=== PATIENT | male | born 1955 | race Caucasian/White ===

== ENCOUNTER 2019-08-09 20:13 | Inpatient (IN) | payer OTHER ==
[~2019-08-09] VITALS: Ht 175.3 cm; Wt 117.5 kg
--- NOTE | ~2019-08-09 | CON ---
[address] [address] CONSULTATION Name: RILEY MEJIAS Room: [facility]#: [id number] Admission: 08/09/19 Attend Phys: Discharge: Date of : 57 Report #: [id number] THIS REPORT FOR: //name// cc: Willow Escobar Mohammad K. DO ~ THIS REPORT FOR: //name// CC: Willow Hogan DATE OF SERVICE: 08/09/2019 CARDIOLOGY CONSULTATION The patient going to the ICU on 08/09/2019. HISTORY OF PRESENT ILLNESS: The patient is a 64-year-old male, who developed chest pain this afternoon, which waxed and waned until this evening when it persisted. He then sought assistance in the [facility] Emergency Room. EKG revealed inferior ST segment elevation compatible with acute inferior wall ST segment elevation myocardial infarction. Risk factors include tobacco use estimated at 1 pack per day for many years, hypertension, and a positive family history of premature coronary disease. He describes borderline diabetes. He has been on a number of medicines, but does not recall them at present in the context of his pain. PHYSICAL EXAMINATION: GENERAL: Demonstrates an acutely distressed, overweight, middle-aged male. VITAL SIGNS: Blood pressure is 140/80, pulse rate is 74, respirations are 18 per minute. NECK: Jugular venous pressure is normal. CHEST: Clear. CARDIAC: Reveals normal first and second heart sounds with a probable S4 gallop. ABDOMEN: Obese. EXTREMITIES: Without edema with intact femoral, pedal and radial pulses. LABORATORY DATA: Electrocardiogram demonstrates sinus rhythm with inferior ST segment elevation suggesting acute inferior wall ST segment elevation myocardial infarction. IMPRESSION: 1. Acute inferior wall ST-elevation myocardial infarction. [facility] [address] [place] [address] CONSULTATION Name: RILEY MEJIAS Room: [facility]#: [id number] Admission: 08/09/19 Attend Phys: Discharge: Date of : 57 Report #: [id number] 2. Antecedent hypertension. 3. Tobacco habituation. 4. Anxiety. 5. Obesity. RECOMMENDATIONS: Given the aforementioned clinical scenario, I would recommend emergent cardiac catheterization with strong consideration of acute percutaneous coronary intervention contingent on the findings of that study. Thirty-five minutes of critical care time from 2200 to 2235 on 08/09/2019. By: 35 [id number] Bonds MD, FACC /nt
[2019-08-09 20:21] VITALS: BP 144/113
[2019-08-09 20:43] LABS: ABSOLUTE BASOPHILS 0.1 thou/uL (0.0-0.2); ABSOLUTE EOSINOPHILS 0.3 thou/uL (0.0-0.7); ABSOLUTE MONOCYTES 0.9 thou/uL (0.0-1.2); ABSOLUTE NEUTROPHILS 5.5 thou/uL (1.6-8.1); BASOPHILS 0.7 %; EOSINOPHILS 2.9 %; HEMATOCRIT 53.6 % (42.0-52.0); HEMOGLOBIN 18.6 gm/dL (14.0-18.0); LYMPHOCYTES 23.3 %; MCH 33.1 pg (26.0-34.0); MCHC 34.7 g/dL (28.0-37.0); MCV 95.6 fL (80.0-100.0); MPV 8.2 fl. (7.2-11.1); NUCLEATED RBCS 0 /100WBC; PLATELET COUNT* 221 thou/uL (150-400); POLYS 63.1 %; RBC 5.61 mil/uL (4.50-6.00); RDW-CV 13.7 % (10.5-14.5); WBC 8.7 thou/uL (4.0-11.0)
[2019-08-09] MEDS ORDERED: MELOXICAM15 MG PO (20:45)
[2019-08-09] MEDS ORDERED: GLUCOPHAGE500 MG PO (20:45)
[2019-08-09] MEDS ORDERED: LIPITOR40 MG PO (20:46)
[2019-08-09] MEDS ORDERED: AMLODIPINE PO (20:46)
[2019-08-09 20:51] LABS: CALCIUM 8.6 mg/dL (8.5-10.1); POTASSIUM 3.7 mmol/L (3.5-5.1)
[2019-08-09 20:52] LABS: PROTIME 10.7 Seconds (9.20-11.50)
[2019-08-09 20:55] VITALS: BP 144/113
[2019-08-09 21:02] LABS: ALBUMIN 4.3 g/dL (3.4-5.0); TOTAL BILIRUBIN 0.9 mg/dL (<0.1-1.0); TOTAL PROTEIN 7.5 g/dL (6.4-8.2)
[2019-08-10] VITALS (12 sets, daily range): BP systolic 119–166; BP diastolic 65–90
[2019-08-10 05:40] LABS: HEMATOCRIT 53.1 % (42.0-52.0); HEMOGLOBIN 18.3 gm/dL (14.0-18.0); MCH 33.4 pg (26.0-34.0); MCHC 34.6 g/dL (28.0-37.0); MCV 96.6 fL (80.0-100.0); MPV 8.2 fl. (7.2-11.1); RBC 5.49 mil/uL (4.50-6.00); RDW-CV 13.6 % (10.5-14.5); WBC 9.3 thou/uL (4.0-11.0)
[2019-08-10 05:59] LABS: CALCIUM 8.7 mg/dL (8.5-10.1); TOTAL BILIRUBIN 0.8 mg/dL (<0.1-1.0); TOTAL PROTEIN 7.4 g/dL (6.4-8.2)
[2019-08-10 06:01] LABS: CHOLESTEROL 92 mg/dL (<200); HDL CHOLESTEROL 30 mg/dL (>40); LDL CHOLESTEROL 50 mg/dL (<100); TC:HDL 3.1 Ratio (Not establshd); TRIGLYCERIDE 60 mg/dL (<150); VLDL 12 mg/dL (<40)
[2019-08-10 06:14] LABS: POTASSIUM 4.8 mmol/L (3.5-5.1); SERUM ASSESSMENT Clear
--- NOTE | 2019-08-10 09:33 | EKG ---
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
--- NOTE | 2019-08-10 09:33 | EKG ---
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
--- NOTE | 2019-08-10 10:51 | EKG ---
[place] [address] ELECTROCARDIOGRAM REPORT Name: RILEY MEJIAS Room: [address] ADM IN M.R.#: [id number] Admission: 08/09/19 Attend Phys: Trevin Polanco Discharge: Date of : 57 Date of Service: 08/09/192016 Report #: [id number] THIS REPORT FOR: //name// [facility] ED Test Date: 2019-08-09 Test Time: 20:17:31 Pat Name: RILEY MEJIAS Department: Room: [facility] Gender: M Resident Services Coordinator: ALEX : 1955 Requested By: Lupe Hogan Order Number: [id number] MD: Sascha Nowak Measurements Intervals [place] Rate: 82 P: 65 PA: 151 QRS: 62 QRSD: 91 T: 93 QT: 351 QTc: 410 Interpretive Statements Sinus rhythm Inferior infarct, acute (RCA) Anteroseptal infarct, age indeterminate Probable RV involvement, suggest recording right precordial leads No previous ECG available for comparison Electronically Signed On 08-10-2019 10:50:38 CDT by Sascha Nowak [email or web address] <ELECTRONICALLY SIGNED> By: Sascha Nowak MD, FAC 08/10/19 1050 16 16 Sascha Nowak MD, [facility] /EPI
--- NOTE | 2019-08-10 14:48 | CARD ---
[address] [address] CARDIAC CATH REPORT Name: RILEY MEJIAS BOBBI Room: [address] IN M.R.#: [id number] Admission: 08/09/19 Attend Phys: Darryl Bonds MD, Discharge: Date of : 57 Report #: [id number] THIS REPORT FOR: //name// cc: Willow Escobar Mohammad K. DO ~ APPROVED REPORT Study performed: 08/09/2019 20:35:04 Patient Details Patient Status: ED Room #: The patient is a 64 year-old male Event Personnel Darryl Bonds Synthetic Filament Spinner, Yumiko Hanley RN, Mabel Mayer RTR Scrub, Saima Joyce RTR Monitor Procedures Performed Art Access - R femoral artery Left Heart Cath w/or w/o Coronaries SHYAM Revasc AMI Total/Sub Single RCA Hemostasis w/ Angioseal Indication STEMI Risk Factors Obesity, Hypercholesterolemia, Hypertension, Tobacco History () Admission/Lab Medications/Medications given during procedure Angiomax Bolus and infusion; transient dopamine infusion will: IV Solu-Medrol and Benadryl Procedure Narrative The patient was brought emergently to the Cardiac Catheterization Laboratory and was prepped and draped in a sterile manner. The right femoral was infiltrated with 2% Lidocaine subcutaneous anesthesia. A [place] 6 FR sheath was inserted into the right femoral artery. Coronary angiography was performed using coronary diagnostic catheters. The right coronary system was accessed and visualized with a Diagnostic 6 Fr JR 4 catheter. The left coronary system was accessed and visualized with a Diagnostic 6 Fr JL 4 catheter. The left ventricle was accessed and visualized with a Diagnostic 6 Fr Pigtail catheter. Left ventricular/Aortic Valve gradient assessed via catheter pullback. [place] [address] CARDIAC CATH REPORT Name: MAGALIERILEY LEE Room: [address]#: [id number] Admission: 08/09/19 Attend Phys: Darryl Bonds MD, Discharge: Date of : 57 Report #: [id number]. Pre-demployment femoral angiogram was performed . Closure device was deployed with a Fr Angioseal STS 6Fr. The patient tolerated the procedure well and there were no complications associated with the procedure. There was no hematoma. Intraoperative Conscious Sedation Sedation start time: 21:07 Case end Time: 22:15 Fentanyl 25 mcg Versed 1 mg Fluoro Time: 14.7 minutes Dose: DAP [id number] cGycm2 2485 mGy Contrast Type and Amount: Visipaque 235 ml Diagnostic Cath Left Main 0 percent narrowing LAD Tortuosity with 30% mid vessel narrowing Circumflex NonDominant vessel with 40% mid vessel narrowing Right Coronary Dominant vessel with 100% mid vessel occlusion and local thrombus at the site Left Ventriculography Left Ventriculography was not performed. Hemodynamics The aortic pressure is 137/66 mmHg with a mean of 97 mmHg. The left ventricular pressure is 142/-13 mmHg with a mean of mmHg. The left ventricular end diastolic pressure is 20 mmHg. There was no gradient across the aortic valve upon pullback. PCI Technique Lesion Anticoagulation was achieved with Angiomax Drip. Patient was preloaded with Angiomax IV 17 ml. Percutaneous coronary intervention was performed on the mid right coronary artery. The lesion stenosis prior to intervention was 100% with VIELKA 0 flow. A 6F JR 4.0 Guide Catheter was used to engage the right ostium. A IG: ProwaterFlex 180CM Interventional Guidewire was used to cross the lesion. BALLOON DILATION A Balloon catheter Trek RX 2.5 X 12 was inserted and inflated up to 10.00atm for 20seconds. Additional Inflation: 10.00atm for 54seconds. Additional Inflation: 10.00atm for 63seconds. STENT DEPLOYMENT A drug-eluting stent Warren RX Stent 2.5X15mm was inserted and inflated up to 10.00atm for 11seconds. Additional Inflation: 16.00atm [place] [address] CARDIAC CATH REPORT Name: RILEY MEJIAS Room: [address] IN .R.#: [id number] Admission: 08/09/19 Attend Phys: Darryl Bonds MD, Discharge: Date of : 57 Report #: [id number] for 10seconds. Additional Inflation: 18.00atm for 14seconds. POST STENT DEPLOYMENT BALLOON DILATION A Balloon catheter NC Euphora 3.0x12 was inserted and inflated up to 16.00atm for 14seconds. Additional Inflation: 17.00atm for 14seconds. NC Euphora 3.0 x 12 was inserted and inflated up to 14 elham for 15 seconds and 17 elham for 15 seconds. Final angiography reveals 10 % stenosis with VIELKA 3 flow. Conclusion #[address] segment elevation myocardial infarction #2 coronary artery disease characterized by the following: A 100% mid right coronary occlusion with prominent intraluminal thrombus B 30% narrowing of the midportion of a tortuous LAD C 40% narrowing in the midportion of the nondominant circumflex #3 moderate elevation of left ventricular end-diastolic pressure at rest #4 successful PCI with deployment of a drug-eluting stent at the site of 100% mid right coronary occlusion with 10% residual narrowing and VIELKA-3 flow to the distal vessel with no residual thrombus Recommendations Cardiac Rehabilitation Referral Cardiac Risk Reduction Program Aggressive Medical Therapy Medications Administered Aspirin (any) Prasugrel Diagnostic Cath Approved by: Darryl Bonds MD Date/Time: 08/10/2019 14:44:16 <ELECTRONICALLY SIGNED> By: Darryl Bonds MD, FACC 08/10/19 1447 1447 1447Darryl Bonds MD, FACC /INF
[2019-08-11] VITALS: BP 134/73
[2019-08-11 04:25] VITALS: BP 98/51
[2019-08-11 08:00] VITALS: BP 127/77
--- NOTE | 2019-08-11 10:47 | D ---
[address] [address] DISCHARGE SUMMARY Name: RILEY MEJIAS BOBBI Room: [address] IN M.R.#: [id number] Admission: 08/09/19 Attend Phys: Darryl Bonds MD, Discharge: Date of : 57 Report #: [id number] THIS REPORT FOR: //name// cc: Willow Escobar Mohammad K. DO ~ THIS REPORT FOR: //name// CC: SE Escobar DATE OF SERVICE: 08/11/2019 DISCHARGE DIAGNOSES: 1. Acute inferior ST segment elevation myocardial infarction. 2. Coronary artery disease. 3. Hyperlipidemia. 4. Hypertension. 5. Diabetes. 6. Chronic obstructive pulmonary disease. 7. Tobacco abuse. CONSULTANTS: None. PROCEDURES: Emergent left heart catheterization with selective coronary arteriograms and placement of a single drug-eluting stent in the right coronary artery via the femoral approach by Dr. Darryl Bonds. HISTORY OF PRESENT ILLNESS: The patient is a 64-year-old single white male who came to the Emergency Room complaining of chest pain. The patient has a long history of hypertension, diabetes, hyperlipidemia, and smoking. Apparently, he has had no previous history of heart disease. He does note that for the past several hours, he has been having episodes of a chest heaviness. It tended to come and go. He was at work at that time. However, at about 3 in the afternoon, it became persistent, went into his left arm and shoulder. He did note some shortness of breath. His family members brought him to the Emergency Room at [facility] at about 8 in the evening. He was found to be having evidence of an acute inferior ST segment elevation myocardial infarction. He was admitted for further evaluation and treatment. PAST MEDICAL HISTORY: He has had no major surgical procedures. MEDICATIONS: On admission included metformin, Caduet 10-40 for hypertension and hyperlipidemia, meloxicam for shoulder pain, and metformin for diabetes. ALLERGIES: He had an allergy [place] [address] DISCHARGE SUMMARY Name: RILEY MEJIAS Room: [address] IN [facility]#: [id number] Admission: 08/09/19 Attend Phys: Darryl Bonds MD, Discharge: Date of : 57 Report #: [id number] PHYSICAL EXAMINATION: GENERAL: On admission revealed an obese, middle-aged male, appeared in mild distress. VITAL SIGNS: His blood pressure is 140/100, pulse is 80. He is afebrile. HEENT: Mucous membranes are moist. CHEST: No expiratory wheezes. CARDIAC: Regular rate and rhythm. ABDOMEN: Obese. EXTREMITIES: He had no edema. SKIN: Cool and dry. DIAGNOSTIC DATA: His ECG on admission showed a sinus rhythm with ST segment elevation in leads II, III, aVF, reciprocal ST segment depression in V2 and V3. His chest x-ray on admission showed cardiomegaly and clear lung cruz. LABORATORY DATA: Sodium 141, potassium 3.7, BUN 12, creatinine 1.0, glucose 138. His troponin first set was 4.0. His cholesterol 92, triglycerides 60, HDL 30, and LDL 50. White blood cell count 8.7 and hemoglobin 18.6. HOSPITAL COURSE: The patient was felt to be having acute inferior STEMI. Code STEMI was activated. Dr. Darryl Bonds was photonics engineer and came to the Emergency Room on an emergent basis. The patient was taken urgently to the cardiac catheterization lab. Dr. Bonds performed emergent cardiac catheterization from the right femoral artery. Results showed the dominant right coronary artery was completely occluded in its mid portion. There was only 30% narrowing in the mid LAD, 40% narrowing in the mid circumflex artery. No ventriculogram was performed. He was given Angiomax and had balloon angioplasty of the right coronary artery. He then had a single drug-eluting stent placed in the right coronary artery. Residual narrowing was less than 10%. There was good flow. The patient was loaded with Effient. The patient was continued on Angiomax for several hours following the procedure because of clot. An Angio-Seal was placed in the right femoral artery. Fortunately, the patient had no further chest pain, shortness of breath, or arrhythmias. He did develop low blood pressure following the procedure, treated with IV fluids. He transiently was given dopamine. He was transferred to the ICU. The following day; however, he was ambulating, had no further complaints. There is no hematoma in the groin. The patient was transferred to telemetry. He was seen by cardiac rehabilitation. An echocardiogram is pending at the time of discharge to assess left ventricular function. At the time of discharge, the patient had a blood pressure of 130/70, his pulse is 64, and he was afebrile. The patient was on a sliding scale during his hospitalization. At time of discharge, he had potassium 4.8, creatinine 1.0. His peak troponin was 53. Followup hemoglobin was 18.3. The patient was noted to be wheezing and was given a bronchodilator during this hospitalization. The patient was discharged on the following medications: Aspirin 81 mg a day, [place] [address] DISCHARGE SUMMARY Name: RILEY MEJIAS Room: [address] IN [facility]#: [id number] Admission: 08/09/19 Attend Phys: Darryl Bonds MD, Discharge: Date of : 57 Report #: [id number] Lipitor 40 mg a day, and carvedilol 3.125 mg twice a day. He was not given an LEIGH ANN inhibitor because of low blood pressure. Meloxicam as needed for arthritis, metformin 500 mg twice a day, Effient 10 mg a day, and he was taken off the Caduet, which he had been taking for his high blood pressure in the past. He was also given nitroglycerin to take as needed for chest pain. He was discharged to return to care of Dr. Se Vega for routine medical care including management of his diabetes. I strongly recommended he attempts to stop smoking. I recommend he start an exercise program and enroll in cardiac rehabilitation. He will be seen by my nurse practitioner in 1 week. In 8 weeks, he is scheduled to return to see Dr. Darryl Bonds in Cardiology Clinic. He is felt to have a good prognosis from cardiac standpoint. He was to contact the office if he had recurrent shortness of breath, chest pain, or bleeding. He was given albuterol inhaler to take as needed for shortness of breath. 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 <ELECTRONICALLY SIGNED> By: Sascha Nowak MD, [facility] 08/11/19 1047 0942 1014Dhollie Nowak MD, FACC /nt
[2019-08-11] MEDS ORDERED: CARVEDILOL3.125 MG PO (11:16)
[2019-08-11] MEDS ORDERED: EFFIENT10 MG PO (11:17)
[2019-08-11] MEDS ORDERED: NITROGLYCERIN0.4 MG SUBLING (11:18)
[2019-08-11] MEDS ORDERED: ASPIR 8181 MG PO (11:21)
[2019-08-11] MEDS ORDERED: ACETAMINOPHEN325 MG PO (11:28)
[2019-08-11] MEDS ORDERED: PROAIR HFA8.5 GM INH (11:29)
--- NOTE | 2019-08-11 12:10 | 2DMMODE ---
[place] [address] 2 D/M-MODE ECHOCARDIOGRAM Name: MAGALIERILEY LEE Room: [address] IN .R.#: [id number] Admission: 08/09/19 Attend Phys: Trevin Polanco Discharge: Date of : 57 Date of Service: 08/11/19 1209 Report #: [id number] THIS REPORT FOR: cc: Willow Escobar,Sascha Jose MD [facility] ~ APPROVED REPORT Study performed: 08/11/2019 11:20:12 EXAM: Comprehensive 2D, Doppler, and color-flow Echocardiogram Patient Location: In-Patient Room #: 209 Status: routine BSA: 2.31 HR: 63 bpm BP: 98/51 mmHg Rhythm: NSR Other Information Study Quality: Good Indications Acute [place] 2D Dimensions IVSd: 11.36 (7-11mm) LVOT Diam: 22.88 (18-24mm) LVDd: 45.56 mm PWd: 10.39 (7-11mm) Ascending Ao: 37.52 (22-36mm) LVDs: 31.13 (25-40mm) Aortic Root: 34.45 mm Volumes Left Atrial Volume (Systole) LA ESV Index: 24.00 mL/m2 Aortic Valve AoV Peak Javi.: 1.75 m/s AO Peak Gr.: 12.22 mmHg LVOT Max P.93 mmHg AO Mean Gr.: 6.76 mmHg LVOT Mean P.70 mmHg LVOT Max V: 1.22 m/s AO V2 VTI: 33.06 cm LVOT Mean V: 0.75 m/s SCOT (VTI): 2.80 cm2 LVOT V1 VTI: 22.54 [place] [address] 2 D/M-MODE ECHOCARDIOGRAM Name: RILEY MEJIAS Room: [address] IN .R.#: [id number] Admission: 08/09/19 Attend Phys: Trevin Polanco Discharge: Date of : 57 Date of Service: 08/11/19 1209 Report #: [id number] Mitral Valve E/A Ratio: 0.89 MV Decel. Time: 217.55 ms MV E Max Javi.: 0.78 m/s MV PHT: 63.09 ms MVA (PHT): 3.49 cm2 TDI E/Lateral E': 7.09 E/Medial E': 9.75 Medial E' Javi.: 0.08 m/s Lateral E' Javi.: 0.11 m/s Tricuspid Valve RAP Estimate: 5.00 mmHg TR Peak Gr.: 22.49 mmHg RVSP: 27.00 mmHg PA Pressure: 27.00 mmHg Left Ventricle The left ventricle is normal size. There is normal LV segmental wall motion. There is normal left ventricular wall thickness. Left ventricular systolic function is normal. The left ventricular ejection fraction is within the normal range. LVEF is 55-60%. Grade I - abnormal relaxation pattern. Right Ventricle Right ventricle is dilated. The right ventricular systolic function is normal. Atria The left atrium size is normal. Right atrium is dilated. Aortic Valve The aortic valve is normal in structure. No aortic regurgitation is present. There is no aortic valvular stenosis. Mitral Valve The mitral valve is normal in structure. There is no mitral valve regurgitation noted. No evidence of mitral valve stenosis. Tricuspid Valve The tricuspid valve is normal in structure. Trace tricuspid regurgitation. No pulmonary hypertension. Pulmonic Valve Pulmonic valve is not well visualized. There is no pulmonic [place] [address] 2 D/M-MODE ECHOCARDIOGRAM Name: RILEY MEJIAS BOBBI Room: [address] IN [facility].#: [id number] Admission: 08/09/19 Attend Phys: Trevin Polanco Discharge: Date of : 57 Date of Service: 08/11/19 1209 Report #: [id number] Great Vessels The aortic root is normal in size. IVC is normal in size and collapses >50% with inspiration. Pericardium There is no pericardial effusion. <Conclusion> LVEF is 55-60%. <ELECTRONICALLY SIGNED> By: Sascha Nowak MD, FACC 08/11/191208 08 08 Sascha Nowak MD, FACC /INF
== END 2019-08-11 12:24 | disposition home or self-care (01) | DRG 247 ==
LOC: M.CL 20:13 → M.ERS 20:13 → M.ICU 22:50 → M.TBA-ER 22:50 → M.ICU 23:13 → M.2W 08-11 00:07
PROVIDERS: Emergency Medicine; ADMIT Internal Medicine
PROC: B211YZZ Fluoroscopy of Multiple Coronary Arteries using Other Contrast (ICD-10-PCS; principal; 2019-08-09)
PROC: 4A023N7 Measurement of Cardiac Sampling and Pressure, Left Heart, Percutaneous Approach (ICD-10-PCS; principal; 2019-08-09)
PROC: 027034Z Dilation of Coronary Artery, One Artery with Drug-eluting Intraluminal Device, Percutaneous Approach (ICD-10-PCS; principal; 2019-08-09)
DX: I21.19 ST elevation (STEMI) myocardial infarction involving other coronary artery of inferior wall (principal); I25.10 Atherosclerotic heart disease of native coronary artery without angina pectoris; J44.9 Chronic obstructive pulmonary disease, unspecified; E78.5 Hyperlipidemia, unspecified; Z88.0 Allergy status to penicillin; Z79.899 Other long term (current) drug therapy

== ENCOUNTER 2020-03-07 19:28 | Inpatient (IN) | payer OTHER ==
[~2020-03-07] VITALS: Ht 175.3 cm; Wt 103.0 kg
[~2020-03-07 19:28] MED LIST: ACETAMINOPHEN325 MG PO; AMLODIPINE PO; ASPIR 8181 MG PO; CARVEDILOL3.125 MG PO; EFFIENT10 MG PO; GLUCOPHAGE500 MG PO; LIPITOR40 MG PO; MELOXICAM15 MG PO; NITROGLYCERIN0.4 MG SUBLING; PROAIR HFA8.5 GM INH
[2020-03-07 19:35] VITALS: BP 177/90
[2020-03-07 19:59] LABS: ABSOLUTE EOSINOPHILS 0.4 thou/uL (0.0-0.7); ABSOLUTE LYMPHOCYTES 1.7 thou/uL (0.8-5.3); ABSOLUTE MONOCYTES 0.9 thou/uL (0.0-1.2); ABSOLUTE NEUTROPHILS 5.6 thou/uL (1.6-8.1); BASOPHILS 0.5 %; EOSINOPHILS 4.1 %; HEMATOCRIT 56.8 % (42.0-52.0); HEMOGLOBIN 19.3 gm/dL (14.0-18.0); LYMPHOCYTES 20.2 %; MCH 32.7 pg (26.0-34.0); MCV 96.2 fL (80.0-100.0); MONOCYTES 10.5 %; MPV 7.9 fl. (7.2-11.1); NUCLEATED RBCS 0 /100WBC; PLATELET COUNT* 176 thou/uL (150-400); POLYS 64.7 %; RDW-CV 14.7 % (10.5-14.5); WBC 8.6 thou/uL (4.0-11.0)
[2020-03-07 20:05] LABS: CALCIUM 9.2 mg/dL (8.5-10.1); CREATININE 0.9 mg/dL (0.6-1.3); POTASSIUM 3.8 mmol/L (3.5-5.1)
[2020-03-07 20:08] LABS: APTT 27.9 Seconds (25.0-31.3); INR 1.1; PROTIME 11.2 Seconds (9.20-11.50)
[2020-03-07 20:16] LABS: ALBUMIN 4.1 g/dL (3.4-5.0); TOTAL PROTEIN 7.5 g/dL (6.4-8.2)
[2020-03-07 23:00] VITALS: BP 159/80
[2020-03-08] VITALS (12 sets, daily range): BP systolic 126–162; BP diastolic 56–83
--- NOTE | 2020-03-08 09:15 | EKG ---
[place] [address] ELECTROCARDIOGRAM REPORT Name: RILEY MEJIAS Room: [address] ADM IN M.R.#: [id number] Admission: 03/07/20 Attend Phys: Jagdish Abraham, Discharge: Date of : 57 Date of Service: 03/07/201933 Report #: [id number] THIS REPORT FOR: //name// [facility] ED Test Date: 2020-03-07 Test Time: 19:34:39 Pat Name: RILEY MEJIAS Department: Room: [facility] Gender: M Director Of Music Therapy: CHANDRA : 1955 Requested By: Ana Laura Guillen Order Number: [id number] MD: Sascha Nowak Measurements Intervals [place] Rate: 83 P: 55 NC: 136 QRS: 28 QRSD: 107 T: 21 QT: 399 QTc: 469 Interpretive Statements Sinus rhythm septal q waves noted artifact noted Compared to ECG 08/10/2019 08:52:04 ST (T wave) deviation no longer present Myocardial infarct finding still present Electronically Signed On 03-08-2020 9:15:01 CDT by Sascha Nowak [email or web address] <ELECTRONICALLY SIGNED> By: Sascha Nowak MD, FACC 03/08/20914 33 33 Sascha Nowak MD, FAC /EPI
[2020-03-08 10:19] LABS: CHOLESTEROL 87 mg/dL (<200); HDL CHOLESTEROL 32 mg/dL (>40); LDL CHOLESTEROL 47 mg/dL (<100); SERUM ASSESSMENT Clear; TC:HDL 2.7 Ratio (Not establshd); TRIGLYCERIDE 43 mg/dL (<150); VLDL 9 mg/dL (<40)
--- NOTE | 2020-03-08 15:57 | EKG ---
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: : 1955 Requested By: Dawn Shultz Order Number: [id number] Shemar MD: Atif Bradshaw Measurements Intervals [place] Rate: 67 P: 116 DC: 147 QRS: 163 QRSD: 98 T: 180 QT: 405 QTc: 428 Interpretive Statements Right and left arm electrode reversal, interpretation assumes no reversal Sinus rhythm Nonspecific T wave abnormality Compared to ECG 03/07/2020 19:34:39 Q waves no longer present Electronically Signed On 03-08-2020 15:57:38 CDT by Atif Bradshaw [email or web address] <ELECTRONICALLY SIGNED> By: Atif Bradshaw MD, FACC 03/08/20 1557 1348 1348 Atif Bradshaw MD, FAC /EPI
[2020-03-09] VITALS: BP 128/34
[2020-03-09 04:00] VITALS: BP 141/78
[2020-03-09 05:12] LABS: HEMATOCRIT 52.9 % (42.0-52.0); HEMOGLOBIN 17.6 gm/dL (14.0-18.0); MCH 32.4 pg (26.0-34.0); MCHC 33.3 g/dL (28.0-37.0); MCV 97.3 fL (80.0-100.0); MPV 8.2 fl. (7.2-11.1); NUCLEATED RBCS 0 /100WBC; PLATELET COUNT* 175 thou/uL (150-400); RBC 5.44 mil/uL (4.50-6.00); RDW-CV 14.5 % (10.5-14.5); WBC 14.3 thou/uL (4.0-11.0)
[2020-03-09 05:14] LABS: CALCIUM 8.9 mg/dL (8.5-10.1); CREATININE 0.8 mg/dL (0.6-1.3); POTASSIUM 4.6 mmol/L (3.5-5.1)
[2020-03-09 06:15] LABS: ABSOLUTE LYMPHOCYTES 1.3 thou/uL (0.8-5.3); PLATELET ESTIMATE ADEQUATE
[2020-03-09 08:00] VITALS: BP 141/79
[2020-03-09] MEDS ORDERED: IMDUR 30 MG TAB30 M1 PO (10:32)
[2020-03-09 13:51] VITALS: BP 145/64
[2020-03-09 14:05] VITALS: BP 145/64
[2020-03-09 14:36] VITALS: BP 153/89
[2020-03-09] MEDS ORDERED: PROTONIX40 M4 PO (15:37)
[2020-03-09] MEDS ORDERED: PREDNISONE 10 M10 MG PO (15:37)
--- NOTE | 2020-03-09 18:15 | CARD ---
[address] [address] CARDIAC CATH REPORT Name: MAGALIERILEY LEE Room: [address] IN M.R.#: [id number] Admission: 03/07/20 Attend Phys: Jagdish Abraham MD Discharge: 03/09/20 Date of : 57 Report #: [id number] THIS REPORT FOR: //name// cc: Willow Escobar Mohammad K. DO ~ APPROVED REPORT Study performed: 03/08/2020 14:56:52 Patient Details Patient Status: In-Patient Room #: 214 The patient is a 64 year-old male Event Personnel Atif Bradshaw Reconstructive Dentist, Uzma Osorio RN RN, Bautista Mckeon RTR Scrub, Saima Joyce RTR Monitor Procedures Performed Art Access - R femoral artery Left Heart Cath w/or w/o Coronaries Hemostasis w/ Angioseal Admission/Lab Medications/Medications given during procedure Oxygen Nasal cannula 4 l per min, 0.9% Sodium Chloride IV 75 ml per hr, Fentanyl IV 25 mcg, Midazolam (Versed) IV 1 mg, Lidocaine Subcut 14 ml Procedure Narrative The patient was brought urgently to the Cardiac Catheterization Laboratory and was prepped and draped in a sterile manner. The right femoral was infiltrated with 2% Lidocaine subcutaneous anesthesia. A [place] 6 FR sheath was inserted into the right femoral artery. Coronary angiography was performed using coronary diagnostic catheters. The right coronary system was accessed and visualized with a Diagnostic 6 Fr JR 4 catheter. The left coronary system was accessed and visualized with a Diagnostic 6 Fr JL 4 catheter. The left ventricle was accessed and visualized with a Diagnostic 6 Fr Pigtail catheter. Left ventricular/Aortic Valve gradient assessed via catheter pullback. Left ventriculogram was performed in [place] projection. Pre-demployment femoral angiogram was performed in [place] projection. Closure device was deployed with a Fr Mynx 6Fr/7Fr. The patient tolerated the procedure well and there were no complications associated with the procedure. There was no hematoma. Intraoperative Conscious Sedation Sedation start time: 16:00 Case end Time: [place] [address] CARDIAC CATH REPORT Name: RILEY MEJIAS Room: [address]#: [id number] Admission: 03/07/20 Attend Phys: Jagdish Abraham MD Discharge: 03/09/20 Date of : 57 Report #: [id number] 16:13 Fentanyl 25 mcg Versed 1 mg Fluoro Time: 3.0 minutes Dose: DAP 92031 cGycm2 1306 mGy Contrast Type and Amount: Visipaque 130 ml Diagnostic Cath Left Main The left main coronary artery is normal and bifurcates into a left anterior descending and circumflex coronary artery. LAD The left anterior descending coronary artery has minimal plaquing in its proximal and midportion. The distal vessel wraps around the apex and is codominant with the right coronary artery. Diagonal 1 The first diagonal branch is a large branch vessel with no significant narrowing noted. Circumflex The circumflex coronary artery has mild plaquing in its proximal and midportion. OM1 The first obtuse marginal branch is a small vessel that appears to be free of significant disease. OM2 The second obtuse marginal branch is large in size and free of significant disease. Right Coronary The right coronary artery is a codominant vessel. There is mild plaquing just after the takeoff of a high rising acute marginal branch. There is a widely patent stent in the mid right coronary artery. There is some mild plaquing in the distal right coronary artery. R PDA A small codominant PDA is without significant disease. RPLV A moderate sized bifurcating posterior lateral branch is free of significant disease. Left Ventriculography The left ventricle is normal in size with normal contractility. The left ventricular ejection fraction is estimated to be 55%. Left ventricular wall motion abnormalities are not present. Hemodynamics The aortic pressure is 133/62 mmHg with a mean of 60 mmHg. The left ventricular pressure is 124/7 mmHg with a mean of mmHg. The left ventricular end diastolic pressure is 16 mmHg. Conclusion 1. Widely patent stent in the mid right coronary artery. 2. No other hemodynamically significant stenoses noted. 3. Normal [place] [address] CARDIAC CATH REPORT Name: RILEY MEJIAS Room: [address] IN M.R.#: [id number] Admission: 03/07/20 Attend Phys: Jagdish Abraham MD Discharge: 03/09/20 Date of : 57 Report #: [id number] 4. Minimally elevated left ventricular end-diastolic pressure of 60 mmHg. Recommendations 1. Continue medical management and aggressive risk factor modification. <ELECTRONICALLY SIGNED> By: Atif Bradshaw MD, FACC 03/09/201814 14 14Miccassidy Bradshaw MD, FACC /INF
== END 2020-03-09 16:10 | disposition home or self-care (01) | DRG 282 ==
LOC: M.ERS 19:28 → M.TBA-ER 21:54 → M.2W 21:54 → M.TBA-ER 21:54 → M.2W 22:47
PROVIDERS: Internal Medicine; Personal Emergency Response Attendant; Registered Nurse; ADMIT Internal Medicine; ATTEND Internal Medicine
PROC: B215YZZ Fluoroscopy of Left Heart using Other Contrast (ICD-10-PCS; principal; 2020-03-08)
PROC: 4A023N7 Measurement of Cardiac Sampling and Pressure, Left Heart, Percutaneous Approach (ICD-10-PCS; principal; 2020-03-08)
PROC: B41FYZZ Fluoroscopy of Right Lower Extremity Arteries using Other Contrast (ICD-10-PCS; principal; 2020-03-08)
PROC: B211YZZ Fluoroscopy of Multiple Coronary Arteries using Other Contrast (ICD-10-PCS; principal; 2020-03-08)
DX: I21.4 Non-ST elevation (NSTEMI) myocardial infarction (principal); I25.10 Atherosclerotic heart disease of native coronary artery without angina pectoris; E66.9 Obesity, unspecified; E11.9 Type 2 diabetes mellitus without complications; D75.1 Secondary polycythemia; J44.9 Chronic obstructive pulmonary disease, unspecified; Z20.828 Contact with and (suspected) exposure to other viral communicable diseases; Z90.49 Acquired absence of other specified parts of digestive tract; Z88.0 Allergy status to penicillin; Z95.5 Presence of coronary angioplasty implant and graft; Z68.33 Body mass index [BMI] 33.0-33.9, adult; Z71.6 Tobacco abuse counseling; Z23 Encounter for immunization

== ENCOUNTER 2020-03-11 05:07 | Emergency (ER) | payer OTHER ==
[~2020-03-11] VITALS: Ht 175.3 cm; Wt 104.3 kg
[~2020-03-11 05:07] MED LIST changes: +IMDUR 30 MG TAB30 M1 PO; +PREDNISONE 10 M10 MG PO; +PROTONIX40 M4 PO
[2020-03-11 05:27] LABS: HEMATOCRIT 54.2 % (42.0-52.0); HEMOGLOBIN 18.2 gm/dL (14.0-18.0); MCH 32.6 pg (26.0-34.0); MCHC 33.6 g/dL (28.0-37.0); MCV 97.1 fL (80.0-100.0); MPV 7.8 fl. (7.2-11.1); RBC 5.58 mil/uL (4.50-6.00); RDW-CV 14.6 % (10.5-14.5); WBC 10.9 thou/uL (4.0-11.0)
[2020-03-11 05:31] LABS: CALCIUM 9.3 mg/dL (8.5-10.1); CREATININE 0.7 mg/dL (0.6-1.3); POTASSIUM 4.1 mmol/L (3.5-5.1)
[2020-03-11 07:15] VITALS: BP 143/69
--- NOTE | 2020-03-11 10:04 | EKG ---
[place] [address] ELECTROCARDIOGRAM REPORT Name: RILEY MEJIAS Room: [facility]#: [id number] Admission: 03/11/20 Attend Phys: Discharge: 03/11/20 Date of : 57 Date of Service: 03/11/20 0510 Report #: [id number] THIS REPORT FOR: //name// [facility] ED Test Date: 2020-03-11 Test Time: 05:10:10 Pat Name: RILEY MEJIAS Department: Room: Gender: Complaint Evaluation Officer: [place] : 1955 Requested By: Ana Laura Guillen Order Number: [id number] MD: Sascha Nowak Measurements Intervals Stanton Rate: 77 P: 77 NM: 142 QRS: 45 QRSD: 97 T: 30 QT: 365 QTc: 414 Interpretive Statements Sinus rhythm Ventricular premature complex Anterior infarct, old Compared to ECG 03/08/2020 13:48:18 Ventricular premature complex(es) now present Myocardial infarct finding now present T-wave abnormality no longer present Electronically Signed On 03-11-2020 10:04:34 CDT by Sascha Nowak [email or web address] <ELECTRONICALLY SIGNED> By: Sascha Nowak MD, FAC 03/11/20 1004 0510 0510 Sascha Nowak MD, [facility] /EPI
== END 2020-03-11 07:15 | disposition home or self-care (01) ==
LOC: M.ERS 05:07
PROVIDERS: Personal Emergency Response Attendant
DX: J44.9 Chronic obstructive pulmonary disease, unspecified (principal); Z48.01 Encounter for change or removal of surgical wound dressing; E78.00 Pure hypercholesterolemia, unspecified; Z90.49 Acquired absence of other specified parts of digestive tract